=== PATIENT | female | born 1975 | race American Indian/Alaskan Native ===

== ENCOUNTER 2016-12-14 10:45 | Emergency (ER) | payer MEDICAID ==
[2016-12-14 18:07] LABS: Urine Drugs of Abuse Note Disclamer
[2016-12-14 18:25] LABS: Bacteria,Urine 1+ /HPF (Negative); Bilirubin,Urine NEG (Negative); Blood,Urine NEG (Negative); Ketones,Urine TR mg/dL (Negative); Leukocyte Esterase,Urine LG (Negative); Mucus,Urine FEW /HPF; Nitrite,Urine NEG (Negative); Protein,Urine <15 mg/dL mg/dL (Negative); Urobilinogen,Urine < 2.0 mg/dL (<2.0)
[2016-12-14] MEDS ORDERED: VALIUM IM ONE (22:16)
--- NOTE | 2016-12-14 22:17 | Emergency Department Report ---
ED General Adult HPI - General Chief complaint: Psych Stated complaint: WITHDRAWAL SYMPTOMS Time Seen by Provider: 12/14/16 20:49 Source: patient, RN notes reviewed Mode of arrival: Ambulatory Limitations: No Limitations - History of Present Illness Initial comments: This is a 41-year-old female. She is previously unknown to me. Has a past medical history of bipolar and PTSD. Presents to the ER having flashbacks. Feels like she is becoming manic. She is not homicidal. She is not suicidal. She has intermittent chronic hallucinations. No headache, no vomiting, no chest pain, no abdominal pain, no irritative or obstructive urinary symptoms. She does not want to hurt herself or kill herself. She wants to go to local psychiatric facility for medical clearance. -: Gradual Consistency: constant Improves with: none Worsens with: none Associated Symptoms: malaise. denies: confusion, chest pain, cough, diaphoresis , fever/chills - Related Data Allergies Allergy/AdvReac Type Severity Reaction Status Date / Time haloperidol [From Haldol] Allergy Unknown Verified 12/14/16 14:55 haloperidol lactate Allergy Unknown Verified 12/14/16 14:55 [From Haldol] Reisperidol Allergy Unknown Uncoded 12/14/16 14:55 ED Review of Systems ROS: Stated complaint: WITHDRAWAL SYMPTOMS Other details as noted in HPI Constitutional: denies: fever Eyes: denies: vision change ENT: denies: epistaxis Respiratory: denies: cough Cardiovascular: denies: chest pain Gastrointestinal: denies: abdominal pain Genitourinary: denies: urgency Musculoskeletal: denies: back pain Skin: denies: lesions Neurological: denies: headache Psychiatric: anxiety. denies: homicidal thoughts, suicidal thoughts ED Past Medical Hx - Past Medical History Previous Medical History?: Yes Hx Psychiatric Treatment: Yes (PTSD, Bipolar) - Social History Smoking Status: Never Smoker Substance Use Type: None ED Physical Exam - General Limitations: No Limitations General appearance: alert, in no apparent distress - Head Head exam: Present: atraumatic, normocephalic - Eye Eye exam: Present: normal appearance, EOMI. Absent: nystagmus - ENT ENT exam: Present: normal exam, normal orophraynx, mucous membranes moist, normal external ear exam - Neck Neck exam: Present: normal inspection, full ROM. Absent: tenderness, meningismus - Respiratory Respiratory exam: Present: normal lung sounds bilaterally. Absent: respiratory distress, wheezes, rales, rhonchi, stridor, decreased breath sounds - Cardiovascular Cardiovascular Exam: Present: normal rhythm, tachycardia, normal heart sounds. Absent: systolic murmur, diastolic murmur, rubs, gallop - GI/Abdominal GI/Abdominal exam: Present: soft, normal bowel sounds. Absent: distended, tenderness, guarding, rebound, rigid, pulsatile mass - Extremities Exam Extremities exam: Present: normal inspection, full ROM, normal capillary refill. Absent: tenderness, pedal edema, joint swelling, calf tenderness - Back Exam Back exam: Present: normal inspection, full ROM. Absent: tenderness, CVA tenderness (R), CVA tenderness (L), muscle spasm, paraspinal tenderness, vertebral tenderness - Neurological Exam Neurological exam: Present: alert, oriented X3, normal gait, other (Extraocular movements intact. Tongue midline. No facial droop. Facial sensation intact to light touch in the V1, V2, V3 distribution bilaterally. 5 and 5 strength in 4 extremities.. Sensation is intact to light touch in 4 extremities.). Absent : motor sensory deficit - Psychiatric Psychiatric exam: Present: anxious. Absent: homicidal ideation, suicidal ideation - Skin Skin exam: Present: warm, dry, intact, normal color. Absent: rash ED Course Vital Signs 12/14/16 12/15/16 14:55 00:58 Temperature 97.6 F 98.9 F Pulse Rate 112 H 78 Respiratory 18 18 Rate Blood Pressure 157/109 Blood Pressure 147/85 [Left] O2 Sat by Pulse 98 98 Oximetry - Reevaluation(s) Reevaluation #1: 12/14/16 23:25 Mood disorder, anxiety, medical clearance for psychiatric admission/evaluation. assessment and plan: 41-year-old female here for medical clearance for psychiatric evaluation. She is afebrile with reassuring vital signs. Tachycardia resolved. She is clinically well-appearing, not homicidal, not suicidal. The patient is pleasant, calm, cooperative and does not require 1013 at this time. Basic laboratory studies are pending. She appears to be somewhat anxious. She will be given benzodiazepines symptomatically. I'm awaiting her laboratory studies at this time. Reevaluation #2: 12/15/16 01:52 Vital signs unremarkable. Laboratory studies unremarkable. At this point in time, it appears that there are no immediate medical contraindications to psychiatric admission/evaluation. Tachycardia resolved. Patient seen and evaluated by Mr. Manuel Gan of crisis, who independently agrees that patient does not require 1013 at this time. ED Medical Decision Making - Lab Data Result diagrams: 12/14/16 23:45 12/14/16 23:45 Vital Signs 12/14/16 14:55 Temperature 97.6 F Pulse Rate 112 H Respiratory 18 Rate Blood Pressure 157/109 O2 Sat by Pulse 98 Oximetry Lab Results 12/14/16 12/14/16 Range/Units 17:54 17:54 Urine Color Straw (Yellow) Urine Turbidity Clear (Clear) Urine pH 6.0 (5.0-7.0) Ur Specific [place] 1.002 L (1.003-1.030) Urine Protein <15 mg/dl (Negative) mg/dL Urine Glucose (UA) Neg (Negative) mg/dL Urine Ketones Tr (Negative) mg/dL Urine Blood Neg (Negative) Urine Nitrite Neg (Negative) Urine Bilirubin Neg (Negative) Urine Urobilinogen < 2.0 (<2.0) mg/dL Ur Leukocyte Esterase Lg (Negative) Urine WBC (Auto) 1.0 (0.0-6.0) /HPF Urine RBC (Auto) 1.0 (0.0-6.0) /HPF U Epithel Cells (Auto) 3.0 (0-13.0) /HPF Urine Bacteria (Auto) 1+ (Negative) /HPF Urine Mucus Few /HPF Urine HCG, Qual Negative (Negative) Urine Opiates Screen Presumptive negative Urine Methadone Screen Presumptive negative Ur Barbiturates Screen Presumptive negative Ur Phencyclidine Scrn Presumptive negative Ur Amphetamines Screen Presumptive positive U Benzodiazepines Scrn Presumptive negative Urine Cocaine Screen Presumptive positive U Marijuana (THC) Screen Presumptive negative Drugs of Abuse Note Disclamer Critical care attestation.: If time is entered above; I have spent that time in minutes in the direct care of this critically ill patient, excluding procedure time. ED Disposition Clinical Impression: Medical clearance for psychiatric admission Disposition: DISCHARGED TO HOME OR SELFCARE Is pt being admited?: No Does the pt Need Aspirin: No Condition: Stable Additional Instructions: Tender current outpatient medications. Follow up with outpatient psychiatry or primary care. Return to the ER right away with new, worsening or different symptoms. At this point in time, it is not appear that there is any immediate medical contact indication to psychiatric admission/evaluation. Referrals: LARY RUVALCABA MD [Primary Care Provider] - 3-5 Days
[2016-12-15 00:05] LABS: Basophils % (Auto) 1.6 % (0.0-1.8); Eosinophils % (Auto) 1.9 % (0.0-4.3); Hematocrit 42.7 % (30.3-42.9); Hemoglobin 13.4 gm/dl (10.1-14.3); Mean Corpuscular HGB Conc 31 % (30-34); Mean Corpuscular Volume 72 fl (79-97); Platelet Count 224 K/mm3 (140-440); Red Blood Count 5.93 M/mm3 (3.65-5.03); White Blood Count 8.8 K/mm3 (4.5-11.0)
[2016-12-15 00:07] LABS: Mean Corpuscular Hemoglobin 23 pg (28-32)
[2016-12-15 00:17] LABS: Anion Gap 24 mmol/L; Blood Urea Nitrogen 3 mg/dL (7-17); Calcium 9.7 mg/dL (8.4-10.2); Carbon Dioxide 24 mmol/L (22-30); Chloride 95.8 mmol/L (98-107); Glucose 92 mg/dL (65-100); Potassium 3.7 mmol/L (3.6-5.0); Sodium 140 mmol/L (137-145)
[2016-12-15 01:29] VITALS: BP 147/85
== END 2016-12-15 02:44 | disposition home or self-care (01) ==
LOC: ED 10:45
DX: Z04.6 Encounter for general psychiatric examination, requested by authority (principal); F31.9 Bipolar disorder, unspecified; Z88.8 Allergy status to other drugs, medicaments and biological substances
CPT/HCPCS: 36415; 80048; 80307; 81001; 81025; 85025; 99283; G0480; 80320